=== PATIENT | female | born 1965 | race Caucasian/White ===

== ENCOUNTER 2024-07-08 10:59 | Emergency (ER) | payer BC, SELFPAY ==
[2024-07-08 11:07] VITALS: BP 137/98
--- NOTE | 2024-07-08 11:34 | ED.GENMED ---
History of Present Illness
General
Chief Complaint: Crisis Evaluation
Time Seen by Provider: 07/08/24 11:15
History of Present Illness
History of Present Illness:
Patient is a 58-year-old woman with history of anxiety depression presenting to the emergency department for crisis evaluation. Patient states that she is recovering from alcohol use. She states that she went months without it up until a few weeks
ago. She states that she has been drinking about 6 beers a day. She last drank beer this morning and had 1.5 beers. She does not feel that she is going through withdrawal. This morning she had an altercation with her mother. She states that her
mother owns a property that she lives in. Secondary to the conversation she did have suicidal thoughts. Patient does not have a plan. She does state that 2 days ago she had a similar altercation and had mobile crisis talk to her. They
recommended intensive outpatient he. Patient states that this morning the same thing occurred so she called mobile crisis and then she came to the emergency department. She does state that she has been inpatient before. She has never attempted to
hurt herself. She denies any homicidal thoughts. No delusions. No drug use. No medical complaints.
Past History
Past History
ED Past Medical History: Hypercholesterolemia and Other (Cataracts, anemia, incontinence, irritable bowel syndrome, essential tremor (on propanolol). Alcohol abuse)
Social History
Alcohol: Daily
Phy Exam
Physical Exam
Physical Exam:
GENERAL: Anxious, crying
HEENT: normocephalic
NECK: normal inspection
RESPIRATORY: no respiratory distress
CARDIOVASCULAR: regular rate and rhythm
NEUROLOGIC: awake and alert, moves all extremities
Psych: Alert and oriented x 3, depressed mood, speech normal not pressured, coherent thought process, not tangential, suicidal, not homicidal, cooperative and communicating, no active auditory or visual hallucinations
SKIN: warm
Course
Orders/Labs/Results
Orders:
Orders
07/08/24 11:10
1:1 Observation - Suicide/ Violent Behavior As Directed
Crisis Consult Urgent
Reason for Consult: SI
07/08/24 11:56
Acetaminophen Urgent
Alcohol Urgent
CMP [Comprehensive Metabolic Panel] Urgent
Complete Blood Count/With Diff Urgent
Salicylate Urgent
07/08/24 12:20
Urinalysis Reflex To Culture Urgent
Date Specimen was Collected: 07/08/24
Time Specimen was Collected: 12:18
Urine Drug Abuse Screen Urgent
Date Specimen was Collected: 07/08/24
Time Specimen was Collected: 12:18
Abnormal Lab Results
07/08/24
11:56
WBC 2.8 L 10^3/uL
(4.8-10.8)
RBC 4.03 L 10^6/uL
(4.20-5.40)
MCH 34.5 H pg
(27.0-31.0)
Absolute Lymphs (auto) 1.1 L 10^3/uL
(1.2-3.4)
Basophils % 2.1 H %
(0-2)
Glucose 107 H mg/dl
(70-99)
AST 37 H U/L
(14-36)
Salicylates < 1.0 L mg/dl
(2.0-20.0)
Acetaminophen < 10 L ug/ml
(10-30)
07/08/24 11:56
07/08/24 11:56
Vital Signs
Initial and Last Documented VS:
Initial Vital Signs
Temp Pulse Resp BP Pulse Ox
98.2 F 85 18 137/98 96
07/08/24 11:07 07/08/24 11:07 07/08/24 11:07 07/08/24 11:07 07/08/24 11:07
Last Documented Vital Signs
Temp Pulse Resp BP Pulse Ox
98.2 F 85 18 137/98 96
03/27/25 11:07 07/08/24 11:07 07/08/24 11:07 07/08/24 11:07 07/08/24 11:07
MDM/Problems Addressed
Differential Diagnosis Includes:
Patient is a 58-year-old woman presenting to the emergency department with suicidal thoughts. Vitals unremarkable and exam does show woman who appears anxious and upset. She has no medical complaints. She is requesting placement. Will discuss
with her crisis team. She does not feel that she is going through withdrawal currently. Will continue to monitor.
*Critical Care Note
Total Time (30-74mins, 75-104mins- exclusive of procedures): Not Applicable
Update Note
Update Note:
[facility] evaluated patient. They are pending bed availability. She will go on a 201 basis. Blood work was ordered from triage. She is leukopenic. Patient does state that she is aware of this and is getting worked up for it. Otherwise CMP is
normal. Her alcohol level is elevated at 379.
Patient signed out to oncoming attending pending transfer to psychiatric facility.
ED Attending Note
-
Portions of this chart may have been created with voice recognition software.� Occasional wrong word or��sound alike� substitutions may have occurred due to the inherent limitations of voice recognition software.
Discharge Plan
Departure
Patient Disposition: Psych Facility
Date of Disposition: 07/08/24
Time of Disposition: 12:41
Patient Status:: 201
Discharge Problem:
Suicidal thoughts
Prescriptions:
No Action
trazodone 50 mg Tablet
50 mg PO HS PRN (Reason: sleep)
ascorbic acid-zinc sulfate 200-100 mg Tablet
1 tab PO DAILY
milk thistle 150 mg Capsule
150 mg PO DAILY
propranolol 10 mg Tablet
10 mg PO TID
melatonin 10 mg Tablet
10 mg PO HS PRN (Reason: sleep)
tramadol 50 mg Tablet
25 mg PO Q6HPRN PRN (Reason: moderate pain) Qty: 12 0RF
gabapentin 300 mg Capsule
300 mg PO TID Qty: 9 0RF
celecoxib 100 mg Capsule
100 mg PO BID Qty: 60 0RF
Referrals:
UNKNOWN - PT NOT,INTERVIEWE [Family Provider] -
Interventions
Interventions:
*Risk Screen - Suicide Last Done: 07/08/24 11:07
*General Assessment Last Done: 07/08/24 11:07
*Neglect/Abuse Screening Last Done: 07/08/24 11:07
*ED COVID-19 Vaccine History Last Done: 07/08/24 11:07
ED-Psychological Assessment Last Done: 07/08/24 11:41
Discharge Date and Time
Print Language: [id number]
[2024-07-08 12:17] LABS: % Basophils 2.1 % (0-2); % Eosinophils 1.1 % (0-6); % Lymphocytes 38.4 % (20.5-51.1); % Neutrophils 52.4 % (42.2-75.2); Absolute Basophils 0.1 10^3/uL (0-0.2); Absolute Lymphocytes 1.1 10^3/uL (1.2-3.4); Absolute Monocytes 0.2 10^3/uL (0.1-0.6); Absolute Neutrophils 1.5 10^3/uL (1.4-6.5); Hematocrit 39.9 % (37.0-47.0); Hemoglobin 13.9 g/dL (12.0-16.0); Mean Corp Hgb Conc. 34.8 g/dL (33.0-37.0); Mean Corpuscular Hgb 34.5 pg (27.0-31.0); Mean Platelet Volume 10.3 fL (7.4-10.4); Nucleated Red Blood Cells % 0 %; Platelet Count 178 10^3/uL (130-400); Red Blood Cell Count 4.03 10^6/uL (4.20-5.40); Red Cell Dist. Width 11.6 % (11.5-14.5); White Blood Cell Count 2.8 10^3/uL (4.8-10.8)
[2024-07-08 12:25] LABS: ALT (SGPT) 21 U/L (0-35); AST (SGOT) 37 U/L (14-36); Acetaminophen < 10 ug/ml (10-30); Albumin 4.6 g/dl (3.5-5.0); Alkaline Phosphatase 82 U/L (38-126); Blood Urea Nitrogen 11 mg/dl (7-17); Calcium 9.2 mg/dl (8.4-10.2); Carbon Dioxide 30 mmol/L (22-30); Chloride 105 mmol/L (98-107); Glucose 107 mg/dl (70-99); Salicylate < 1.0 mg/dl (2.0-20.0); Sodium 144 mmol/L (135-145); Total Bilirubin 0.5 mg/dl (0.2-1.3); Total Protein 7.8 g/dl (6.3-8.2); eGFR > 60.00
[2024-07-08 12:33] LABS: Alcohol 379 mg/dl
[2024-07-08 12:47] LABS: Urine Albumin Negative (Neg - Trace); Urine Bilirubin Negative (Negative); Urine Character Clear (Clear); Urine Color Yellow; Urine Glucose Negative (Negative); Urine Ketone Negative (Negative); Urine Leukocyte 2+ (Negative); Urine Nitrite Negative (Negative); Urine Occult Blood Negative (Negative); Urine Urobilinogen Negative (Neg - 1+)
[2024-07-08 13:06] LABS: Amphetamines Negative (Negative); Barbiturates Negative (Negative); Benzodiazepines Negative (Negative); Buprenorphine Negative (Negative); Cocaine Negative (Negative); Marijuana Negative (Negative); Methadone Negative (Negative); Methamphetamines Negative (Negative); Opiates Negative (Negative); Phencyclidine Negative (Negative); Tricyclic Antidepressants Negative (Negative)
[2024-07-08 13:44] LABS: Urine Red Blood Cell 0-2 /HPF (0-2)
[2024-07-08 13:45] LABS: Urine Bacteria Moderate (Negative)
[2024-07-08 14:18] VITALS: BP 121/84
[2024-07-08] MEDS: ATIVAN 1 MG PO (18:38)
== END 2024-07-08 19:36 ==
LOC: EMR 10:59
PROVIDERS: EMERGENCY PHYSICIAN Student in an Organized Health Care Education/Training Program
DX: R45.851 Suicidal ideations (principal); F41.9 Anxiety disorder, unspecified; F32.A Depression, unspecified; F10.90 Alcohol use, unspecified, uncomplicated; E78.00 Pure hypercholesterolemia, unspecified; G25.0 Essential tremor
CPT/HCPCS: 99283; 80053; 80143; 80179; 80306; 81003; 81015; 82077; 85025; 87077; 87086